=== PATIENT | female | born 1995 | race Two or more races ===

== ENCOUNTER 2019-05-27 12:00 | Emergency (ER) | payer SELFPAY ==
--- NOTE | 2019-05-27 12:22 | ER Document Report ---
ED Medical Screen (RME) - General Chief Complaint: Abdominal Pain Stated Complaint: ABDOMINAL PAIN Time Seen by Provider: 05/27/19 12:16 Mode of Arrival: Ambulatory Information source: Patient Notes: Patient presents to the emergency department with complaint of low abdominal cramping. She reports she had a positive home test a few days ago. She denies any vaginal bleeding or abnormal discharge. She is a G2, P0. Patient is unsure how far along she may be. Exam: Mild tenderness to the lower abdomen with palpation. I have greeted and performed a rapid initial assessment of this patient. A comprehensive ED assessment and evaluation of the patient, analysis of test results and completion of the medical decision making process will be conducted by additional ED providers. I have specifically instructed the patient or family members with the patient to immediately return to any nursing staff should anything change in the patient's condition or with their chief complaint. This medical record was dictated with voice recognizing software. There may be grammatical, syntax errors that are unintended. TRAVEL OUTSIDE OF THE U.S. IN LAST 30 DAYS: No - Related Data Allergies/Adverse Reactions: No Known Allergies Allergy (Verified 05/27/19 12:04) Past Medical History - Social History Frequency of alcohol use: Social Drug Abuse: None Pulmonary Medical History: Reports: Hx Asthma Renal/ Medical History: Denies: Hx Peritoneal Dialysis Past Surgical History: Reports: Hx Appendectomy Physical Exam - Vital signs Vitals: Temp Pulse Resp BP Pulse Ox 98.2 F 80 14 106/51 L 99 05/27/19 12:06 05/27/19 12:06 05/27/19 12:06 05/27/19 12:06 05/27/19 12:06 Course - Vital Signs Vital signs: Temp Pulse Resp BP Pulse Ox 98.2 F 80 14 106/51 L 99 05/27/19 12:06 05/27/19 12:06 05/27/19 12:06 05/27/19 12:06 05/27/19 12:06
[2019-05-27 12:52] LABS: ABSOLUTE EOSINOPHILS # (AUTO) 0.1 10^3/uL (0.0-0.6); ABSOLUTE LYMPHOCYTES (AUTO) 1.5 10^3/uL (0.5-4.7); ABSOLUTE MONOCYTES (AUTO) 0.4 10^3/uL (0.1-1.4); ABSOLUTE NEUT (AUTO) 2.5 10^3/uL (1.7-8.2); BASOPHILS % (AUTO) 0.6 % (0-2); EOSINOPHILS % (AUTO) 1.5 % (0-6); HEMOGLOBIN 10.9 g/dL (12.0-15.5); LYMPHOCYTES % (AUTO) 33.3 % (13-45); MEAN CORPUSCULAR HEMOGLOBIN 27.2 pg (27.0-33.4); MEAN CORPUSCULAR VOLUME 82 fl (80-97); PLATELET COUNT 197 10^3/uL (150-450); RED BLOOD COUNT 4.02 10^6/uL (3.72-5.28); RED CELL DISTRIBUTION WIDTH 14.6 % (11.5-14.0); SEGMENTED NEUTROPHILS % (AUTO) 56.6 % (42-78); TOTAL CELLS COUNTED % (AUTO) 100 %; WHITE BLOOD COUNT 4.5 10^3/uL (4.0-10.5)
[2019-05-27 12:58] LABS: APPEARANCE,URINE CLEAR; BILIRUBIN,URINE NEGATIVE (NEGATIVE); COLOR,URINE YELLOW; GLUCOSE, URINE NEGATIVE (NEGATIVE); KETONES,URINE TRACE mg/dL (NEGATIVE); LEUKOCYTE ESTERASE,URINE NEGATIVE (NEGATIVE); NITRITE,URINE NEGATIVE (NEGATIVE); PROTEIN,URINE NEGATIVE (NEGATIVE); URINE SPECIFIC GRAVITY 1.024; UROBILINOGEN,URINE NEGATIVE mg/dL (<2.0)
[2019-05-27 13:12] LABS: ALBUMIN 4.1 g/dL (3.5-5.0); ALKALINE PHOSPHATASE 45 U/L (38-126); ANION GAP 8 (5-19); ASPARTATE AMINO TRANSFERASE 24 U/L (14-36); BILIRUBIN,DIRECT 0.2 mg/dL (0.0-0.4); BILIRUBIN,TOTAL 0.4 mg/dL (0.2-1.3); BLOOD UREA NITROGEN 10 mg/dL (7-20); CALCIUM 9.3 mg/dL (8.4-10.2); CARBON DIOXIDE 26 mmol/L (22-30); CHLORIDE 106 mmol/L (98-107); GLUCOSE 83 mg/dL (75-110); POTASSIUM 4.4 mmol/L (3.6-5.0); TOTAL PROTEIN 7.3 g/dL (6.3-8.2)
--- NOTE | 2019-05-27 14:34 | ER Document Report ---
HPI - HPI Patient complains to provider of: abdominal pain in Time Seen by Provider: 05/27/19 12:16 Onset/Duration: Gradual Quality of pain: Cramping Severity: Mild Pain Level: 1 Context: 23 yr old female patient, with the listed pmh, here for intermittent lower abdominal pain/cramping x 4 days. hx of recent home positive upreg test. . no confirmed IUP or US this . no complications during last . has initial apt with obgyn may 30. LMP April 16. hasn't sought care until now. no fall or trauma. taking prenatals. tylenol controlling pain. 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 No abdominal surgeries other than remote appendectomy. No history of ovarian cysts, fibroids, endometriosis, or renal stones. Normal bowel movements. No UTI symptoms. No URI symptoms. No recent antibiotics or steroids. No history of diabetes or asthma. No vaginal discharge/bleeding/complaints/lesions or concerns for STDs and does not want a pelvic exam. No excessive NSAID use, Tylenol use, or EtOH. No prior history of gallbladder disease, pancreatitis, ulcers, GI bleed, GERD, IBS, Crohn's, or UC. no change in color or caliber or stool. no blood thinners. no other associated sx. Similar symptoms previously: No Recently seen / treated by doctor: No - ROS Systems Reviewed and Negative: Yes All other systems reviewed and negative - to include 10 systems, unless mentioned in the hpi - REPRODUCTIVE Reproductive: DENIES: : - DERM Skin Color: Normal, [place] Past Medical History - General Information source: Patient - Social History Smoking Status: Never Smoker Frequency of alcohol use: Social Drug Abuse: None Family History: Reviewed & Not Pertinent Patient has suicidal ideation: No Patient has homicidal ideation: No Pulmonary Medical History: Reports: Hx Asthma Endocrine Medical History: Reports: None Renal/ Medical History: Denies: Hx Peritoneal Dialysis Past Surgical History: Reports: Hx Appendectomy - Immunizations Immunizations up to date: Yes Vertical Provider Document - CONSTITUTIONAL Notes: >>>> PHYSICAL_EXAM: GENERAL_APPEARANCE: well_nourished, alert, cooperative, no_acute_distress, no_obvious_discomfort. Pleasant, young female, smiling, speaking in fu ll sentences, in no sign of pain or resp distress, easily sitting up, adult male significant other at bedside VITALS: reviewed, see vital signs table. HEAD: normocephalic, atraumatic. no donis signs. no raccoon eyes. EYES: PERRL, EOMI, (-)scleral icterus. NOSE: no_nasal_discharge. MOUTH: (-)decreased moisture. THROAT: no_tonsilar_inflammation/hypertrophy/exudate NECK: supple, no_neck_tenderness, full rom. full strength. no meningeal signs. BACK: no midline_back_tenderness. no step offs or deformities CHEST_WALL: no_chest_tenderness. LUNGS: no_wheezing, (-)accessory muscle use, good air exchange bilateral. HEART: normal_rate, normal_rhythm, ABDOMEN: normal_BS, soft, abdomen-diffuse, non-tender, uterus not palpated on exam, (-)guarding, (-)rebound, no distension or peritoneal signs. neg murphys. neg mcburneys. no cva tenderness. neg heel sitrke. neg obturator. neg psoas. neg rovsign. PELVIC: deferred by pt RECTAL: deferred EXTREMITIES: strength 5/5 in all_extremities, good pulses in all_extremities, no_edema, no_swelling\tenderness. full rom. normal gait. good hand appliance assembler. brisk cap refill. SKIN: warm, dry, good_color, no_rash. no grossly visible overlying skin changes to suggest trauma NEURO: motor_intact, sensory_intact. MENTAL_STATUS: normal_affect, speech_clear, oriented_X_3, responds_appropriately to questions. - INFECTION CONTROL TRAVEL OUTSIDE OF THE U.S. IN LAST 30 DAYS: No Course - Re-evaluation Re-evalutation: pt here for pt here for some lower abd cramping in early . no confirmed iup or us for this pregancy prior to this visit. labs unremarkable other than a mild anemia with no old avail for comparison. she denies any bleeding, vag dc, or complaints and didn't want a pelvic so this wasn't done. quant appropriate for dates. she is B+. transvag us showed a living IUP at 6wks 3d with fht of 108bpm, and was otherwise unremarkable per rad and reviewed by myself. pt informed of her findings. advised this could be a threatened vs normal early developing and stressed the importance of having a repeat quant done at obgyn in 2 days to make sure it is rising appropriately and further wor kup. advised pelvic rest. no heavy lifting. cont prenatals. tylenol prn pain. advised sx care. she has no abd ttp on exam. advised to f/u with obgyn in 1-2 days. return for any worsening symptoms. vss. well appearing. satting well on ra. pt understands and agrees to plan. On reexam, pt improved with tx listed. remained stable. nontoxic. well appearing. pain controlled. tolerating po. requesting to go home. serial abd exams remain benign Documentation achieved through voice recording which my lead to some occasional accidental typographical errors. Extensive efforts have been made to proof read documentation to make sure these are the least as possible. Category Date Time Status TRANSVAGINAL [U/S OB TRANSVAGINAL W/O DOP] [US] Stat Exams 05/27/19 14:33 Completed CBC WITH DIFF [HEME] Stat Lab 05/27/19 12:28 Completed COMPREHENSIVE METABOLIC PANEL [CHEM] Stat Lab 05/27/19 12:28 Completed HCG QUALITATIVE, URINE [URIN] Stat Lab 05/27/19 12:24 Completed HCG QUANTITATIVE [CHEM] Stat Lab 05/27/19 12:28 Completed RHOGAM WORKUP [BBK] Stat Lab 05/27/19 12:28 Completed URINALYSIS [URIN] Stat Lab 05/27/19 12:24 Completed Acetaminophen [Tylenol 325 mg Tablet] Med 05/27/19 14:50 Discontinued 650 mg PO NOW ONE - Vital Signs Vital signs: Temp Pulse Resp BP Pulse Ox 98.2 F 80 14 106/51 L 99 05/27/19 12:06 05/27/19 12:06 05/27/19 12:06 05/27/19 12:06 05/27/19 12:06 Temp Pulse Resp BP Pulse Ox 05/27/19 16:19 98 F 61 15 111/59 L 100 05/27/19 12:06 98.2 F 80 14 106/51 L 99 - Laboratory Result Diagrams: 05/27/19 12:28 05/27/19 12:28 Laboratory results interpreted by me: 05/27/19 05/27/19 05/27/19 12:24 12:28 12:28 Hgb 10.9 L Hct 33.0 L RDW 14.6 H Beta HCG, Quant 53565.00 H Urine Ketones TRACE H Urine HCG, Qual POSITIVE H Labs- Entire Visit 05/27/19 05/27/19 05/27/19 12:24 12:28 12:28 WBC 4.5 RBC 4.02 Hgb 10.9 L Hct 33.0 L MCV 82 MCH 27.2 MCHC 33.0 RDW 14.6 H Plt Count 197 Seg Neutrophils % 56.6 Lymphocytes % 33.3 Monocytes % 8.0 Eosinophils % 1.5 Basophils % 0.6 Absolute Neutrophils 2.5 Absolute Lymphocytes 1.5 Absolute Monocytes 0.4 Absolute Eosinophils 0.1 Absolute Basophils 0.0 Sodium 139.5 Potassium 4.4 Chloride 106 Carbon Dioxide 26 Anion Gap 8 BUN 10 Creatinine 0.80 Est GFR ( Amer) > 60 Est GFR (Non-Af Amer) > 60 Glucose 83 Calcium 9.3 Total Bilirubin 0.4 Direct Bilirubin 0.2 Neonat Total Bilirubin Not Reportable Neonat Direct Bilirubin Not Reportable Neonat Indirect Bili Not Reportable AST 24 ALT 13 Alkaline Phosphatase 45 Total Protein 7.3 Albumin 4.1 Beta HCG, Quant 95017.00 H Total Beta HCG POSITIVE Urine Color YELLOW Urine Appearance CLEAR Urine pH 5.0 Ur Specific [place] 1.024 Urine Protein NEGATIVE Urine Glucose (UA) NEGATIVE Urine Ketones TRACE H Urine Blood NEGATIVE Urine Nitrite NEGATIVE Urine Bilirubin NEGATIVE Urine Urobilinogen NEGATIVE Ur Leukocyte Esterase NEGATIVE Urine WBC (Auto) 1 Urine RBC (Auto) 1 U Hyaline Cast (Auto) 1 Squamous Epi Cells Auto 5 Urine Mucus (Auto) MANY Urine Ascorbic Acid NEGATIVE Urine HCG, Qual POSITIVE H Blood Type Rhogam Indicated 05/27/19 12:28 WBC RBC Hgb Hct MCV MCH MCHC RDW Plt Count Seg Neutrophils % Lymphocytes % Monocytes % Eosinophils % Basophils % Absolute Neutrophils Absolute Lymphocytes Absolute Monocytes Absolute Eosinophils Absolute Basophils Sodium Potassium Chloride Carbon Dioxide Anion Gap BUN Creatinine Est GFR ( Amer) Est GFR (Non-Af Amer) Glucose Calcium Total Bilirubin Direct Bilirubin Neonat Total Bilirubin Neonat Direct Bilirubin Neonat Indirect Bili AST ALT Alkaline Phosphatase Total Protein Albumin Beta HCG, Quant Total Beta HCG Urine Color Urine Appearance Urine pH Ur Specific [place] Urine Protein Urine Glucose (UA) Urine Ketones Urine Blood Urine Nitrite Urine Bilirubin Urine Urobilinogen Ur Leukocyte Esterase Urine WBC (Auto) Urine RBC (Auto) U Hyaline Cast (Auto) Squamous Epi Cells Auto Urine Mucus (Auto) Urine Ascorbic Acid Urine HCG, Qual Blood Type B POSITIVE Rhogam Indicated RHOGAM NOT INDICATED - Diagnostic Test Radiology reviewed: Image reviewed, Reports reviewed Radiology results interpreted by me: Obstetrics Ultrasound 05/27/19 14:33 IMPRESSION: LIVING INTRAUTERINE . EGA 6 weeks, 3 days Trimester of : First trimester - 0 to 13 weeks. Discharge - Discharge Clinical Impression: Threatened , Abdominal pain during Anemia Qualifiers: Anemia type: unspecified type Qualified Code(s): D64.9 - Anemia, unspecified Condition: Good Disposition: HOME, SELF-CARE Instructions: Threatened Miscarriage ([facility]) Additional Instructions: Follow-up with obgyn in 2 days for repeat hormone level and further workup as discussed. pelvic rest. no heavy lifting. tylenol for any pain. vitamins. Return for any worsening symptoms.
[2019-05-27] MEDS ORDERED: ACETAMINOPHEN 325 MG TABLET PO ONE (14:50)
--- NOTE | 2019-05-27 15:45 | RADIOLOGY REPORT (SQ) ---
EXAM DESCRIPTION: U/S OB TRANSVAGINAL W/O DOP COMPLETED DATE/TIME: 05/27/2019 3:24 pm REASON FOR STUDY: abd pain in preg COMPARISON: None. TECHNIQUE: Transvaginal static and realtime grayscale images acquired of the pelvis. Additional dianne cted spectral and color Doppler images recorded. All images stored on PACs. [facility], [place],[address] CLINICAL DATES: Not Available. LIMITATIONS: None. FINDINGS: FETUS: Single Living intrauterine . ULTRASOUND EGA: 6 weeks, 3 days ULTRASOUND SUSHILA: 01/17/2020 EFW: Not applicable less than 20 weeks. CRL: 6 mm FHR: 108 beats per minute. SURVEY: Too early to assess. AMNIOTIC FLUID: Adequate amount. PLACENTA: Not yet developed due to early gestation. SUBCHORIONIC BLEED: No. SIZE OF BLEED: Not applicable. UTERUS: No masses. No anomalies. CERVICAL LENGTH: 3.9 cm Closed. RIGHT ADNEXA: Normal ovary with normal vascular flow. No adnexal free fluid. No adnexal masses. LEFT ADNEXA: Normal ovary with normal vascular flow. No adnexal free fluid. No adnexal masses. FREE FLUID: None. OTHER: No other significant finding. IMPRESSION: LIVING INTRAUTERINE . EGA 6 weeks, 3 days Trimester of : First trimester - 0 to 13 weeks. TECHNICAL DOCUMENTATION: JOB ID: [id number] [employer]- All Rights Reserved rev Reading location - IP/workstation name: [email or web address]
[2019-05-27 16:21] VITALS: BP 111/59
== END 2019-05-27 16:25 | disposition home or self-care (01) ==
LOC: ER 12:00
DX: O20.0 Threatened abortion (principal); O26.891 Other specified pregnancy related conditions, first trimester; R10.30 Lower abdominal pain, unspecified; O99.011 Anemia complicating pregnancy, first trimester; D64.9 Anemia, unspecified; Z3A.01 Less than 8 weeks gestation of pregnancy; Z90.49 Acquired absence of other specified parts of digestive tract
CPT/HCPCS: 36415; 76817; 80053; 81001; 81025; 84702; 85025; 86900; 86901; 99284

== ENCOUNTER 2019-06-05 10:30 | Emergency (ER) | payer SELFPAY ==
--- NOTE | 2019-06-05 10:56 | ER Document Report ---
ED Medical Screen (RME) - General Chief Complaint: Vag Bleeding, +preg <12wks Stated Complaint: VAGINAL BLEEDING Time Seen by Provider: 06/05/19 10:38 TRAVEL OUTSIDE OF THE U.S. IN LAST 30 DAYS: No - HPI Notes: 06/05/19 10:54 23-year-old female to the emergency department with complaints of vaginal bleeding and lower abdominal pain that has been going on for over a week. She states that she is 8 weeks . She was here about a week and a half ago and had an ultrasound that confirmed a 6-week intrauterine . She states that the vaginal bleeding was just spotting initially but this morning she had a large amount of blood into the toilet. She states that she felt something drop but she is not sure if she is seen any clots. This is her second and she has a 5-year-old child. She denies any fevers, chills, vomiting, diarrhea. She does admit to burning sensation with urination. She is Citizen Of The [place]-speaking only and [employer] lead generation marketing manager was used. I performed a medical screening exam on the patient and have ordered initial lab work to begin her evaluation today in the emergency department. I will have the main side provider continue her evaluation and further management. On exam she has lower abdominal pain at the supra pubic level. She has no guarding or rebound. She has no CVA tenderness bilaterally. - Related Data Allergies/Adverse Reactions: No Known Allergies Allergy (Verified 06/05/19 10:32) Past Medical History - Social History Frequency of alcohol use: None Drug Abuse: None Pulmonary Medical History: Reports: Hx Asthma Renal/ Medical History: Denies: Hx Peritoneal Dialysis Past Surgical History: Reports: Hx Appendectomy - Immunizations Immunizations up to date: Yes Physical Exam - Vital signs Vitals: Temp Pulse Resp BP Pulse Ox 97.7 F 71 14 112/60 98 06/05/19 10:35 06/05/19 10:35 06/05/19 10:35 06/05/19 10:35 06/05/19 10:35 Course - Vital Signs Vital signs: Temp Pulse Resp BP Pulse Ox 97.7 F 71 14 112/60 98 06/05/19 10:35 06/05/19 10:35 06/05/19 10:35 06/05/19 10:35 06/05/19 10:35
[2019-06-05 11:12] LABS: APPEARANCE,URINE CLEAR; BILIRUBIN,URINE NEGATIVE (NEGATIVE); COLOR,URINE STRAW; GLUCOSE, URINE NEGATIVE (NEGATIVE); KETONES,URINE NEGATIVE (NEGATIVE); LEUKOCYTE ESTERASE,URINE NEGATIVE (NEGATIVE); NITRITE,URINE NEGATIVE (NEGATIVE); PROTEIN,URINE NEGATIVE (NEGATIVE); URINE SPECIFIC GRAVITY 1.006; UROBILINOGEN,URINE NEGATIVE mg/dL (<2.0)
[2019-06-05 11:47] LABS: ABSOLUTE LYMPHOCYTES (AUTO) 1.5 10^3/uL (0.5-4.7); ABSOLUTE MONOCYTES (AUTO) 0.3 10^3/uL (0.1-1.4); ABSOLUTE NEUT (AUTO) 3.3 10^3/uL (1.7-8.2); BASOPHILS % (AUTO) 0.4 % (0-2); EOSINOPHILS % (AUTO) 0.7 % (0-6); HEMATOCRIT 31.6 % (36.0-47.0); HEMOGLOBIN 10.7 g/dL (12.0-15.5); LYMPHOCYTES % (AUTO) 28.8 % (13-45); MEAN CORPUSCULAR HEMOGLOBIN 27.8 pg (27.0-33.4); MEAN CORPUSCULAR HGB CONC 33.8 g/dL (32.0-36.0); MEAN CORPUSCULAR VOLUME 82 fl (80-97); PLATELET COUNT 178 10^3/uL (150-450); RED BLOOD COUNT 3.85 10^6/uL (3.72-5.28); SEGMENTED NEUTROPHILS % (AUTO) 64.1 % (42-78); TOTAL CELLS COUNTED % (AUTO) 100 %; WHITE BLOOD COUNT 5.2 10^3/uL (4.0-10.5)
[2019-06-05 12:07] LABS: ALBUMIN 3.8 g/dL (3.5-5.0); ALKALINE PHOSPHATASE 40 U/L (38-126); ANION GAP 7 (5-19); ASPARTATE AMINO TRANSFERASE 25 U/L (14-36); BILIRUBIN,DIRECT 0.1 mg/dL (0.0-0.4); BILIRUBIN,TOTAL 0.3 mg/dL (0.2-1.3); BLOOD UREA NITROGEN 11 mg/dL (7-20); CALCIUM 9.3 mg/dL (8.4-10.2); CARBON DIOXIDE 23 mmol/L (22-30); CHLORIDE 105 mmol/L (98-107); GLUCOSE 86 mg/dL (75-110); POTASSIUM 4.2 mmol/L (3.6-5.0); TOTAL PROTEIN 6.8 g/dL (6.3-8.2)
--- NOTE | 2019-06-05 12:43 | ER Document Report ---
HPI - HPI Patient complains to provider of: Pelvic pain, vaginal bleeding Time Seen by Provider: 06/05/19 10:38 Onset: Yesterday Onset/Duration: Gradual Quality of pain: Cramping Pain Level: 3 Context: Patient is presently 7-1/2 weeks G2, P1. Patient reports lower pelvic pain with vaginal bleeding that started yesterday. Patient states that she has had some dysuria with frequency for the past week. No fever, no back pain. Associated Symptoms: Other - Lower pelvic pain. denies: Fever, Nausea, Vomiting Exacerbated by: Denies Relieved by: Denies Similar symptoms previously: No Recently seen / treated by doctor: Yes - ROS ROS below otherwise negative: Yes Systems Reviewed and Negative: Yes All other systems reviewed and negative - CONSTITUTIONAL Constitutional: DENIES: Fever, Chills - NEURO Neurology: DENIES: Weakness - CARDIOVASCULAR Cardiovascular: DENIES: Chest pain - GASTROINTESTINAL Gastrointestinal: REPORTS: Abdominal Pain. DENIES: Nausea, Patient vomiting - URINARY Urinary: REPORTS: Dysuria, Frequency - REPRODUCTIVE LMP: +8 wk PG Reproductive: REPORTS: : - MUSCULOSKELETAL Musculoskeletal: DENIES: Back Pain - DERM Skin Color: Normal Skin Problems: None Past Medical History - General Information source: Patient - Social History Smoking Status: Never Smoker Frequency of alcohol use: None Drug Abuse: None Occupation: None Lives with: Family Family History: Reviewed & Not Pertinent Patient has suicidal ideation: No Patient has homicidal ideation: No Pulmonary Medical History: Reports: Hx Asthma Renal/ Medical History: Denies: Hx Peritoneal Dialysis Past Surgical History: Reports: Hx Appendectomy - Immunizations Immunizations up to date: Yes Vertical Provider Document - CONSTITUTIONAL Agree With Documented VS: Yes Exam Limitations: No Limitations General Appearance: WD/WN, No Apparent Distress - INFECTION CONTROL TRAVEL OUTSIDE OF THE U.S. IN LAST 30 DAYS: No - HEENT HEENT: Atraumatic, Normocephalic - NECK Neck: Normal Inspection, Supple. negative: Lymphadenopathy-Left, Lymphadenopathy-Right - RESPIRATORY Respiratory: Breath Sounds Normal, No Respiratory Distress - CARDIOVASCULAR Cardiovascular: Regular Rate, Regular Rhythm - GI/ABDOMEN Gastrointestinal: Abdomen Soft, Abdomen Tender - lower pelvic, No Organomegaly, Normal Bowel Sounds. negative: Abdominal Guarding - BACK Back: Normal Inspection. negative: CVA Tenderness-Right, CVA Tenderness-Left - MUSCULOSKELETAL/EXTREMETIES Musculoskeletal/Extremeties: TRAE ARREGUIN - NEURO Level of Consciousness: Awake, Alert, Appropriate Motor/Sensory: No Motor Deficit - DERM Integumentary: Warm, Dry, No Rash Course - Re-evaluation Re-evalutation: 06/05/19 Patient with incidental subchorionic hemorrhage. Patient encouraged to follow- up with SCREEDMAN/LABORER for further evaluation. Patient was requesting the nurse to provide her with information for where she may obtain an . Patient hemodynamically stable with no significant vaginal bleeding on examination. Discussed worsening symptoms that patient should return immediately for. - Vital Signs Vital signs: Temp Pulse Resp BP Pulse Ox 97.7 F 71 14 112/60 98 06/05/19 10:35 06/05/19 10:35 06/05/19 10:35 06/05/19 10:35 06/05/19 10:35 - Laboratory Result Diagrams: 06/05/19 11:32 06/05/19 11:32 Laboratory results interpreted by me: 06/05/19 06/05/19 06/05/19 11:00 11:32 11:32 Hgb 10.7 L Hct 31.6 L RDW 15.0 H Sodium 135.3 L Urine Blood MODERATE H 06/05/19 19:33 Labs- Entire Visit 06/05/19 06/05/19 06/05/19 11:00 11:32 11:32 WBC 5.2 RBC 3.85 Hgb 10.7 L Hct 31.6 L MCV 82 MCH 27.8 MCHC 33.8 RDW 15.0 H Plt Count 178 Lymph % (Auto) 28.8 [place] % (Auto) 6.0 Eos % (Auto) 0.7 Baso % (Auto) 0.4 Absolute Neuts (auto) 3.3 Absolute Lymphs (auto) 1.5 Absolute Monos (auto) 0.3 Absolute Eos (auto) 0.0 Absolute Basos (auto) 0.0 Seg Neutrophils % 64.1 Sodium 135.3 L Potassium 4.2 Chloride 105 Carbon Dioxide 23 Anion Gap 7 BUN 11 Creatinine 0.64 Est GFR ( Amer) > 60 Est GFR (MDRD) Non-Af > 60 Glucose 86 Calcium 9.3 Total Bilirubin 0.3 Direct Bilirubin 0.1 Neonat Total Bilirubin Not Reportable Neonat Direct Bilirubin Not Reportable Neonat Indirect Bili Not Reportable AST 25 ALT 11 Alkaline Phosphatase 40 Total Protein 6.8 Albumin 3.8 Beta HCG, Quant 646890.00 H Total Beta HCG POSITIVE Urine Color STRAW Urine Appearance CLEAR Urine pH 6.0 Ur Specific [place] 1.006 Urine Protein NEGATIVE Urine Glucose (UA) NEGATIVE Urine Ketones NEGATIVE Urine Blood MODERATE H Urine Nitrite NEGATIVE Urine Bilirubin NEGATIVE Urine Urobilinogen NEGATIVE Ur Leukocyte Esterase NEGATIVE Urine WBC (Auto) 0 Squamous Epi Cells Auto 2 Urine Mucus (Auto) RARE Urine Ascorbic Acid NEGATIVE Epi Cells (Wet Prep) Bacteria (Wet Prep) Trichomonas (Wet Prep) Vaginal WBC Vaginal RBC Vaginal Yeast Chlamydia DNA (PCR) N.gonorrhoeae DNA (PCR) 06/05/19 06/05/19 12:41 12:41 WBC RBC Hgb Hct MCV MCH MCHC RDW Plt Count Lymph % (Auto) [place] % (Auto) Eos % (Auto) Baso % (Auto) Absolute Neuts (auto) Absolute Lymphs (auto) Absolute Monos (auto) Absolute Eos (auto) Absolute Basos (auto) Seg Neutrophils % Sodium Potassium Chloride Carbon Dioxide Anion Gap BUN Creatinine Est GFR ( Amer) Est GFR (MDRD) Non-Af Glucose Calcium Total Bilirubin Direct Bilirubin Neonat Total Bilirubin Neonat Direct Bilirubin Neonat Indirect Bili AST ALT Alkaline Phosphatase Total Protein Albumin Beta HCG, Quant Total Beta HCG Urine Color Urine Appearance Urine pH Ur Specific [place] Urine Protein Urine Glucose (UA) Urine Ketones Urine Blood Urine Nitrite Urine Bilirubin Urine Urobilinogen Ur Leukocyte Esterase Urine WBC (Auto) Squamous Epi Cells Auto Urine Mucus (Auto) Urine Ascorbic Acid Epi Cells (Wet Prep) 4+ EPITHELIALS SEEN Bacteria (Wet Prep) 4+ BACTERIA SEEN Trichomonas (Wet Prep) NO TRICHOMONAS SEEN Vaginal WBC 1+ WBCS SEEN Vaginal RBC RARE RBCS SEEN Vaginal Yeast NO YEAST SEEN Chlamydia DNA (PCR) NOT DETECTED N.gonorrhoeae DNA (PCR) NOT DETECTED - Diagnostic Test Radiology reviewed: Reports reviewed Discharge - Discharge Clinical Impression: Vaginal bleeding affecting early , Bacterial vaginosis Subchorionic bleed Qualifiers: Fetus number: single or unspecified fetus Trimester: first trimester Qualified Code(s): O41.8X10 - Other specified disorders of amniotic fluid and membranes, first trimester, not applicable or unspecified Condition: Stable Disposition: HOME, SELF-CARE Instructions: Bleeding During Early ([facility]), Metronidazole ([facility]), Vaginosis, Bacterial ([facility]) Additional Instructions: Return immediately for any new or worsening symptoms Followup with your primary care provider, call tomorrow to make a followup appointment Follow-up with your SCREEDMAN/LABORER provider for recheck Prescriptions: Metronidazole [Flagyl 500 mg Tablet] 500 mg PO BID #14 tablet [facility] [NO [facility]AL MD] - Follow up as needed Print Language: Mohawk
[2019-06-05 12:55] LABS: T.VAGINALIS (WET MOUNT) NO TRICHOMONAS SEEN; WBCS (WET MOUNT) 1+ WBCS SEEN; YEAST (WET MOUNT) NO YEAST SEEN
[2019-06-05 12:56] LABS: BACTERIA (WET MOUNT) 4+ BACTERIA SEEN; EPITHELIALS (WET MOUNT) 4+ EPITHELIALS SEEN; RBCS (WET MOUNT) RARE RBCS SEEN
[2019-06-05 14:24] LABS: CHLAM PCR NOT DETECTED (NOT DETECT)
--- NOTE | 2019-06-05 15:12 | RADIOLOGY REPORT (SQ) ---
EXAM DESCRIPTION: U/S PR1IGTZ TRNABD 1GES W/ODOP COMPLETED DATE/TIME: 06/05/2019 3:01 pm REASON FOR STUDY: pelvic pain, vag bleed COMPARISON: None. TECHNIQUE: Transabdominal static and realtime grayscale images acquired of the pelvis. Additional se lected spectral and color Doppler images recorded. All images stored on PACs. [id number] CLINICAL DATES: 7 weeks 5 days. LIMITATIONS: None. FINDINGS: FETUS: Single Living intrauterine . ULTRASOUND EGA: 7 weeks 5 days. ULTRASOUND SUSHILA: 01/17/2020 EFW: Not applicable less than 20 weeks. CRL: 1.37 cm. FHR: 152 beats per minute. SURVEY: Too early to assess. AMNIOTIC FLUID: Adequate amount. PLACENTA: Not yet developed due to early gestation. SUBCHORIONIC BLEED: Yes SIZE OF BLEED: 3.3 x 2.6 x 3.3 cm UTERUS: No masses. No anomalies. CERVICAL LENGTH: 2.1 cm. Closed. RIGHT ADNEXA: Normal ovary with normal vascular flow. No adnexal free fluid. No adnexal masses. LEFT ADNEXA: Normal ovary with normal vascular flow. No adnexal free fluid. No adnexal masses. FREE FLUID: None. OTHER: No other significant finding. IMPRESSION: LIVING INTRAUTERINE . EGA 7 WEEKS 5 DAYS. THERE IS A SMALL SUBCHORIONIC HEMORRHAGE. Trimester of : First trimester - 0 to 13 weeks. TECHNICAL DOCUMENTATION: JOB ID: [id number] [employer]- All Rights Reserved rev-02/25 Reading location - IP/workstation name: [email or web address]
[2019-06-05 16:03] VITALS: BP 111/62
== END 2019-06-05 16:23 | disposition home or self-care (01) ==
LOC: ER 10:30
DX: O46.91 Antepartum hemorrhage, unspecified, first trimester (principal); O23.591 Infection of other part of genital tract in pregnancy, first trimester; B96.89 Other specified bacterial agents as the cause of diseases classified elsewhere; O41.8X10 Other specified disorders of amniotic fluid and membranes, first trimester, not applicable or unspecified; O26.891 Other specified pregnancy related conditions, first trimester; R10.2 Pelvic and perineal pain; R30.0 Dysuria; R35.0 Frequency of micturition; R10.9 Unspecified abdominal pain; O99.511 Diseases of the respiratory system complicating pregnancy, first trimester; J45.909 Unspecified asthma, uncomplicated; Z3A.01 Less than 8 weeks gestation of pregnancy
CPT/HCPCS: 36415; 76801; 80053; 81001; 84702; 85025; 87086; 87088; 87210; 87491; 87591; 99284

== ENCOUNTER 2019-08-24 09:27 | Emergency (ER) | payer SELFPAY ==
--- NOTE | 2019-08-24 09:52 | ER Document Report ---
ED Medical Screen (RME) - General Chief Complaint: OB Problem (<20wks) Stated Complaint: Time Seen by Provider: 08/24/19 09:36 Notes: 23-year-old G2, P1 19-week Jamaican-speaking female presents to the emergency department for copious clear discharge that started yesterday. Patient states yesterday she noticed a small amount of clear liquid discharge coupled with abdominal cramping. Patient states that today the cramping is much less but when she got up from using the bathroom she felt a neal of liquid that ran down her legs. When she dropped her older child off to school and got out of the car she noticed that her pants were soaking wet. Also, she has not felt the baby move today and noticed reduced activity yesterday. Denies fevers or chills, denies urinary symptoms, denies vaginal bleeding, denies back pain. Exam: Well-appearing in no acute distress, vital signs within normal limits, lungs clear to auscultation in all lynn, regular cardiac rate and rhythm S1-S2 heard, abdominal exam deferred in the triage room I have greeted and performed a rapid initial assessment of this patient. A comprehensive ED assessment and evaluation of the patient, analysis of test results and completion of medical decision making process will be conducted by an additional ED providers. TRAVEL OUTSIDE OF THE [place] IN LAST 30 DAYS: No - Related Data Allergies/Adverse Reactions: No Known Allergies Allergy (Verified 06/05/19 10:32) Home Medications: vitamins Past Medical History - Social History Frequency of alcohol use: None Drug Abuse: None Pulmonary Medical History: Reports: Hx Asthma Renal/ Medical History: Denies: Hx Peritoneal Dialysis Past Surgical History: Reports: Hx Appendectomy - Immunizations Immunizations up to date: Yes Physical Exam - Vital signs Vitals: Temp Pulse Resp BP Pulse Ox 97.5 F 87 18 110/59 L 100 08/24/19 09:33 08/24/19 09:33 08/24/19 09:33 08/24/19 09:33 08/24/19 09:33 Course - Vital Signs Vital signs: Temp Pulse Resp BP Pulse Ox 97.5 F 87 18 110/59 L 100 08/24/19 09:33 08/24/19 09:33 08/24/19 09:33 08/24/19 09:33 08/24/19 09:33
[2019-08-24 10:19] LABS: APPEARANCE,URINE SLIGHTLY-CLOUDY; BILIRUBIN,URINE NEGATIVE (NEGATIVE); COLOR,URINE YELLOW; GLUCOSE, URINE NEGATIVE (NEGATIVE); KETONES,URINE NEGATIVE (NEGATIVE); LEUKOCYTE ESTERASE,URINE NEGATIVE (NEGATIVE); NITRITE,URINE NEGATIVE (NEGATIVE); PROTEIN,URINE NEGATIVE (NEGATIVE); URINE SPECIFIC GRAVITY 1.021; UROBILINOGEN,URINE NEGATIVE mg/dL (<2.0)
[2019-08-24 10:24] LABS: ABSOLUTE EOSINOPHILS # (AUTO) 0.1 10^3/uL (0.0-0.6); ABSOLUTE LYMPHOCYTES (AUTO) 1.4 10^3/uL (0.5-4.7); ABSOLUTE MONOCYTES (AUTO) 0.4 10^3/uL (0.1-1.4); ABSOLUTE NEUT (AUTO) 4.9 10^3/uL (1.7-8.2); BASOPHILS % (AUTO) 0.3 % (0-2); EOSINOPHILS % (AUTO) 1.8 % (0-6); HEMATOCRIT 31.1 % (36.0-47.0); HEMOGLOBIN 10.6 g/dL (12.0-15.5); LYMPHOCYTES % (AUTO) 20.3 % (13-45); MEAN CORPUSCULAR HEMOGLOBIN 30.1 pg (27.0-33.4); MEAN CORPUSCULAR VOLUME 89 fl (80-97); MONOCYTES % (AUTO) 5.4 % (3-13); PLATELET COUNT 166 10^3/uL (150-450); RED BLOOD COUNT 3.51 10^6/uL (3.72-5.28); RED CELL DISTRIBUTION WIDTH 15.9 % (11.5-14.0); SEGMENTED NEUTROPHILS % (AUTO) 72.2 % (42-78); TOTAL CELLS COUNTED % (AUTO) 100 %; WHITE BLOOD COUNT 6.8 10^3/uL (4.0-10.5)
[2019-08-24 10:46] LABS: ALBUMIN 3.4 g/dL (3.5-5.0); ALKALINE PHOSPHATASE 50 U/L (38-126); ANION GAP 7 (5-19); ASPARTATE AMINO TRANSFERASE 63 U/L (14-36); BILIRUBIN,TOTAL 0.4 mg/dL (0.2-1.3); BLOOD UREA NITROGEN 8 mg/dL (7-20); CALCIUM 8.7 mg/dL (8.4-10.2); CARBON DIOXIDE 23 mmol/L (22-30); CHLORIDE 108 mmol/L (98-107); GLUCOSE 70 mg/dL (75-110); POTASSIUM 4.3 mmol/L (3.6-5.0); TOTAL PROTEIN 6.6 g/dL (6.3-8.2)
--- NOTE | 2019-08-24 11:54 | RADIOLOGY REPORT (SQ) ---
EXAM DESCRIPTION: U/S OB 14+ TA/1 GEST W/DOPPLER COMPLETED DATE/TIME: 08/24/2019 11:37 am REASON FOR STUDY: fluid discharge, cannot feel child moving COMPARISON: None. TECHNIQUE: Static and Dynamic grayscale imaging performed of gravid uterus using transabdominal appr oach. Additional selected color Doppler and spectral images recorded. All stored on PACS. LIMITATIONS: None. FINDINGS: FETUSES SEEN:1 EGA: 19 weeks 1 day Calculated using BPD,FL,HC,AC documented on images. No discrepancy with clinical dates. SUSHILA: 01/17/2020 EFW: Not calculated grams PERCENTILE: Not calculated LVP: 3.2 x 7.5 cm PLACENTA: Anterior grade 1. A placental santiago is present. PRESENTATION: Cephalic. ANATOMY: HEART RATE: 152 beats per minute. FOUR CHAMBER HEART: Not confirmed because of lie. THREE VESSEL CORD: Yes. CORD INSERTION: Not seen. KIDNEYS AND BLADDER: Visualized. Appear normal. STOMACH: Visualized. Appears normal. SPINE: Normal as visualized. BRAIN AND LATERAL VENTRICLES: Visualized. Appear normal. OTHER: No other significant finding. MATERNAL ADNEXA: Increased vascularity bilaterally. CERVICAL LENGTH: 4.1 cm. Closed. OTHER: No other significant finding. IMPRESSION: There is a live intrauterine gestation of 19 weeks 1 day. There is increased vascularit y in both adnexae. Trimester of : Second trimester - 13 weeks 1 day to 27 weeks 6 days. TECHNICAL DOCUMENTATION: JOB ID: [id number] [employer]- All Rights Reserved Reading location - IP/workstation name: [email or web address]
[2019-08-24 13:22] VITALS: BP 105/63
--- NOTE | 2019-08-24 13:28 | ER Document Report ---
ED General - General Chief Complaint: OB Problem (<20wks) Stated Complaint: Time Seen by Provider: 08/24/19 09:36 TRAVEL OUTSIDE OF THE [place] IN LAST 30 DAYS: No - HPI Notes: Patient is a female presenting complaining of pelvic cramping and presumed fluid leakage x2 days. Patient denies vaginal bleeding. Patient denies recent sexual intercourse. Patient denies fever, chills, chest pain, shortness of breath, nausea, vomiting. Patient states nothing makes her symptoms worse and nothing improves her symptoms. - Related Data Allergies/Adverse Reactions: No Known Allergies Allergy (Verified 06/05/19 10:32) Home Medications: vitamins Past Medical History - Social History Smoking Status: Never Smoker Frequency of alcohol use: None Drug Abuse: None Family History: Reviewed & Not Pertinent Patient has suicidal ideation: No Patient has homicidal ideation: No Pulmonary Medical History: Reports: Hx Asthma Renal/ Medical History: Denies: Hx Peritoneal Dialysis Past Surgical History: Reports: Hx Appendectomy - Immunizations Immunizations up to date: Yes Review of Systems - Review of Systems Constitutional: No symptoms reported EENT: No symptoms reported Cardiovascular: No symptoms reported Respiratory: No symptoms reported Gastrointestinal: No symptoms reported Genitourinary: See HPI Female Genitourinary: See HPI Musculoskeletal: No symptoms reported Skin: No symptoms reported Hematologic/Lymphatic: No symptoms reported Neurological/Psychological: No symptoms reported -: Yes All other systems reviewed and negative Physical Exam - Vital signs Vitals: Temp Pulse Resp BP Pulse Ox 97.5 F 87 18 110/59 L 100 08/24/19 09:33 08/24/19 09:33 08/24/19 09:33 08/24/19 09:33 08/24/19 09:33 - Notes Notes: PHYSICAL EXAMINATION: GENERAL: Well-appearing, well-nourished and in no acute distress. HEAD: Atraumatic, normocephalic. EYES: Pupils equal round and reactive to light, extraocular movements intact, sclera anicteric, conjunctiva are normal. ENT: nares patent, oropharynx clear without exudates. Moist mucous membranes. NECK: Normal range of motion, supple without lymphadenopathy LUNGS: Breath sounds clear to auscultation bilaterally and equal. No wheezes rales or rhonchi. HEART: Regular rate and rhythm without murmurs ABDOMEN: Soft, nontender, normoactive bowel sounds. No guarding, no rebound. No masses appreciated. EXTREMITIES: Normal range of motion, no pitting or edema. No cyanosis. NEUROLOGICAL: No focal neurological deficits. Moves all extremities spontaneously and on command. PSYCH: Normal mood, normal affect. SKIN: Warm, Dry, normal turgor, no rashes or lesions noted. Course - Re-evaluation Re-evalutation: 08/24/19 13:26 Patient denies pelvic pain, fluid discharge at this time. - Vital Signs Vital signs: Temp Pulse Resp BP Pulse Ox 97.7 F 71 16 105/63 99 08/24/19 12:48 08/24/19 12:48 08/24/19 12:48 08/24/19 12:48 08/24/19 12:48 - Laboratory Result Diagrams: 08/24/19 09:53 08/24/19 09:53 Laboratory results interpreted by me: 08/24/19 08/24/19 09:53 09:53 RBC 3.51 L Hgb 10.6 L Hct 31.1 L RDW 15.9 H Chloride 108 H Glucose 70 L AST 63 H Albumin 3.4 L Beta HCG, Quant 40150.00 H 08/24/19 13:26 Laboratory results reviewed by this MD. - Diagnostic Test Radiology reviewed: Reports reviewed Discharge - Discharge Clinical Impression: Second trimester Condition: Good Disposition: HOME, SELF-CARE Instructions: Pelvic Pain in ([facility]) Additional Instructions: Return to the ER at any time if your symptoms worsen. HOME CARE INSTRUCTIONS & INFORMATION: Thank you for choosing us for your medical needs. We hope you're satisfied with the care you received. After you leave, you must properly care for your problem and, at the same time, observe its progress. Any condition can change. Some illnesses can change rapidly over hours or days. If your condition worsens, return to the Emergency Department or see your physician promptly. ABOUT YOUR X-RAYS AND EKG'S: If you had an EKG or X-rays taken, they have been read by the Emergency Physician. The X-rays and EKG's will also be read by a Radiologist or Bulk Plant Agent within 24 hours. If discrepancies are noted, you will be notified by telephone. Please be certain the ED has a correct telephone number & address where you can be reached. Also, realize that some fractures or abnormalities do not show up on initial X-rays. If your symptoms continue, see your physician. ABOUT YOUR LABORATORY TEST: If you had laboratory tests, the results have been reviewed by the Emergency Physician. Some test results (for example cultures) may not be available for several days. You will be contacted if any test result shows you need additional treatment. Please be certain the ED has a correct telephone number and address where you can be reached. ABOUT YOUR MEDICATIONS: You will receive instructions on how to take your me dicine on the prescription label you receive. Additional information may be provided by the Pharmacy. If you have questions afterwards, call the ED for clarification or further instructions. Some prescribed medications may cause drowsiness. Do not perform tasks such as driving a car or operating machinery without consulting your Pharmacist. If you feel you need a refill of pain medication, your condition will need re-evaluation. Please do not call for a refill of any medication. ABOUT YOUR SIGNATURE: Signature of this document acknowledges to followin. Understanding that you received emergency treatment and that you may be released before al medical problems are known or treated. Please be certain the ED has a correct phone number & address where you can be reached. 2. Acknowledgement that you will arrange for follow-up care as recommended. 3. Authorization for the Emergency Physician to provide information to your follow-up Physician in order to maximize your care. AT ANY TIME, IF YOUR SYMPTOMS CHANGE SIGNIFICANTLY OR WORSEN OR YOU DEVELOP NEW SYMPTOMS, RETURN TO THE EMERGENCY DEPARTMENT IMMEDIATELY FOR RE-EVALUATION. OUR GOAL IS TO PROVIDE EXCELLENT MEDICAL CARE! WE HOPE THAT WE HAVE MET YOUR EXPECTATIONS DURING YOUR EMERGENCY DEPARTMENT VISIT AND THAT YOU FEEL YOU HAVE RECEIVED EXCELLENT CARE! Referrals: [facility] [Provider Group] - 09/12/19 Print Language: Georgian
== END 2019-08-24 13:40 | disposition home or self-care (01) ==
LOC: ER 09:27
DX: O26.892 Other specified pregnancy related conditions, second trimester (principal); R10.2 Pelvic and perineal pain; O99.512 Diseases of the respiratory system complicating pregnancy, second trimester; J45.909 Unspecified asthma, uncomplicated; Z79.899 Other long term (current) drug therapy; Z3A.19 19 weeks gestation of pregnancy
CPT/HCPCS: 36415; 76805; 80053; 81001; 84702; 85025; 93976